=== PATIENT | female | born 2000 | race Caucasian/White ===

== ENCOUNTER 2024-04-12 10:33 | Outpatient (CLI) | payer BC | END 2024-04-12 10:34 | disposition home or self-care (01) | LOC: BICULT 10:33 | PROVIDERS: ATTEND Nurse Practitioner Family | DX: N63.11 Unspecified lump in the right breast, upper outer quadrant (principal); N63.21 Unspecified lump in the left breast, upper outer quadrant; N64.4 Mastodynia | CPT/HCPCS: 76642 ==